=== PATIENT | female | born 1975 | race Caucasian/White ===

== ENCOUNTER → 2017-01-14 | Outpatient (CLI) | payer OTHER | LOC: FIMAGING 15:57 | DX: Z36 Encounter for antenatal screening of mother (principal); N83.202 Unspecified ovarian cyst, left side ==

== ENCOUNTER → 2018-03-11 | Outpatient (CLI) | payer OTHER | LOC: FIMAGING 11:24 | PROVIDERS: ATTEND Advanced Practice Midwife | DX: O09.522 Supervision of elderly multigravida, second trimester (principal); Z3A.18 18 weeks gestation of pregnancy ==

== ENCOUNTER → 2018-06-12 | Outpatient (CLI) | payer OTHER | LOC: FIMAGING 10:07 | PROVIDERS: ATTEND Advanced Practice Midwife | DX: O09.523 Supervision of elderly multigravida, third trimester (principal); Z3A.32 32 weeks gestation of pregnancy ==

== ENCOUNTER 2018-08-06 03:42 | Inpatient (IN) | payer BC, OTHER ==
[2018-08-06] MEDS ORDERED: LR 1,000 ML IV PRN (04:40)
[2018-08-06] MEDS ORDERED: MISOPROSTOL 200 MCG TAB PR PRN (04:40)
[2018-08-06] MEDS ORDERED: OLIVE OIL 118 ML BTL MISC PRN (04:40)
[2018-08-06] MEDS ORDERED: LIDOCAINE 1% 300 MG/30 ML SDV SC PRN (04:40)
[2018-08-06] MEDS ORDERED: OXYTOCIN/RINGERS LACTATE 1,000 ML IV PRN (04:40)
[2018-08-06] MEDS ORDERED: EPSOM SALT 454 GM TP PRN (04:40)
[2018-08-06] MEDS ORDERED: IBUPROFEN 600 MG TAB PO PRN (04:40)
[2018-08-06 06:01] LABS: PLATELET COUNT 235 10^3/uL (150-400)
--- NOTE | 2018-08-06 09:11 | PDGENHP ---
History and Physical History and Physical: CARE: [facility] HPI: Patient is a 42 yo G 3 P 1011 who presents to L&D as a transfer from the [facility] - She had SROM of large amt clear fluid at 0145 this am with contractions that were every 6 minutes. Good activity. Contractions have spaced out and are fairly mild and irregular at this time. She continues to leak clear fluid. The reason for her transfer is she plans an epidural when she is in more active labor. EDC: 08/06/2018 which is based on LMP: 10/30/17 Her is complicated by: -AMA Review of Systems: Constitutional: Denies any fever, chills, or fatigue HEENT: denies any visual changes, difficulty swallowing, hearing loss Cardiovascular: Denies any chest pain, palpitations, leg swelling Respiratory: denies any cough, wheezing, or shortness of breathe GI: Denies any nausea, vomiting, diarrhea, constipation : denies any dysuria, urgency, frequency, vaginal bleeding Musculoskeletal: denies any muscle or bone pain Skin: denies any rashes Neuro: denies any headache, seizures, lightheadedness, dizziness, or loss of consciousness Psychiatric: denies any depression, anxiety, or SI/HI thoughts HISTORY: Previous OB history: 2016 Past medical history: non contributory Past surgical history: none Social history: , non smoker, no alcohol/substance abuse Medications: PNV, magnesium Allergies (list reaction): NKDA LABS: Rh: O pos ABS: Neg Rubella: Immune HbsAg: NR HIV: NR VDRL: NR 1hr: 98 GC: Neg Chlamydia: Neg GBS: neg PHYSICAL EXAM: Constitutional: WN, A&Ox3 Skin: [place], warm and dry HEENT: normocephalic atraumatic, supple Heart: RRR, no murmur Chest: CTA-B Abdomen: Soft, nontender, gravid SVE: deferred due to SROM Extremities: trace edema, negative lucy's sign Neuro: grossly normal Psych: normal affect assessment: Reassuring FHTs, baseline 30s +accels, no decels, moderate variability Contractions: toco q 8-10 mild Assessment: 1) 42 yo G 3 P 1 with IUP@ 40 weeks ega 2) SROM at 0145 - no active labor at this point 3) GBS neg 4) Cat 1 FHR tracing Plan: 1) Admit to L&D 2) Expectant management for now. Offered the option for patient to go home until contractions more regular, will consider, but would like to stay at this time - declines augmentation for now. Is potentially open to pitocin at a later time if labor has not started. 3) Pain management as patient desires. 4) Anticipate
[2018-08-06] MEDS ORDERED: LIDOCAINE 1% 300 MG/30 ML SDV ONE (10:36)
[2018-08-06] MEDS ORDERED: OLIVE OIL 118 ML BTL ONE (10:36)
[2018-08-06] MEDS ORDERED: OXYTOCIN 10 UNIT/ML VIAL ONE (10:37)
[2018-08-06] MEDS ORDERED: MISOPROSTOL 200 MCG TAB ONE (10:37)
[2018-08-06] MEDS ORDERED: TERBUTALINE SULFATE 1 MG/ML VIAL ONE (10:37)
[2018-08-06] MEDS ORDERED: AMMONIA AROMATIC 1 EACH AMP IH ONE (10:37)
--- NOTE | 2018-08-06 16:26 | OBPROG ---
Labor Progress Note Assessment/Plan: Assessment: 42 y/o at 40 weeks ega Regular contractions q 2-4 minutes that are more painful now after nipple stimulation with breast pump EFM category 1 at this time, previously had a 15 minute episode of repetitive late decelerations when using breast pump, resolved after discontinuing breast pump, repositioning and giving IV fluid bolus. Cervix 4-5/80/0 station Active labor Considering epidural soon Plan: Continuous monitoring Epidural when she desires Anticipate 08/06/18 17:29 08/06/18 17:35 Subjective/Intrapartum Course: 08/06/18 17:34 Starting to need to breath through contractions. Considering epidural soon. Objective: 08/06/18 05:30 Patient ABO/Rh O POSITIVE 08/06/18 05:30 - SVE Dilation (cm): 5 Effacement (%): 80 Station: 0 Membranes: SROM Amniotic Fluid Color: Clear - Contraction Pattern Assessment Current Contraction Pattern: Regular Oxytocin Orders Assessment - Pre-Induction/Augmentation Assessment Gestational Age: 40 week(s) and 0 day(s) ICD10 Worksheet Patient Problems: Problems Problem Status Onset AMA (advanced maternal age) multigravida 35+ Acute Prolonged rupture of membranes Acute - ICD10 Problem Qualifiers (1) AMA (advanced maternal age) multigravida 35+ (2) Prolonged rupture of membranes
[2018-08-06] MEDS ORDERED: fentaNYL 2MCG/ML/BUP 0.1% RTU 100 ML BAG EP ONE ×2 (16:50→23:34)
[2018-08-06] MEDS ORDERED: BUPIVACAINE 0.25% 10 ML SDV ONE (16:50)
[2018-08-06] MEDS ORDERED: PHENYLEPHRINE HCL 100 MCG/ML SYR ONE (16:51)
[2018-08-06] MEDS ORDERED: METOCLOPRAMIDE 10 MG/2 ML VIAL IVP PRN (17:21)
[2018-08-06] MEDS ORDERED: ONDANSETRON 4 MG/2 ML VIAL IVP PRN (17:21)
[2018-08-06] MEDS ORDERED: NALOXONE HCL 0.4 MG/ML INJ IVP PRN (17:21)
[2018-08-06] MEDS ORDERED: PHENYLEPHRINE HCL 100 MCG/ML SYR IVP PRN (17:21)
--- NOTE | 2018-08-06 17:21 | POSTANESTH ---
Post Anesthetic Evaluation Cardiovascular Status: Normal, Stable Respiratory Status: Normal, Stable Level of Consciousness/Mental Status: Can Participate in Eval Pain Control: Adequate, Prn Tx Ordered Nausea/Vomiting Control: Adequate, Prn Tx Ordered Complications Possibly Related to Anesthesia: None Noted
--- NOTE | 2018-08-06 17:21 | PREANESOB ---
Obstetric Pre-Anesthesia Info - General Info Proposed Procedure: NELIA : 3 Para: 0 ANNABELLE: 08/06/18 Gestational Age: 40 week(s) and 0 day(s) - Info Status: Full Term FHR Pattern: Reassuring - Labor Status Cervical Dilation per last OB SVE: 5 Station per last OB SVE: 0 Rupture of Membranes Date: 08/06/18 Rupture of Membranes Time: 01:45 Amniotic Fluid Color: Clear Indications for Labor Analgesia: Pain Control Labor Epidural: Proposed Anesthesia Allergies/Adverse Reactions: Allergy/AdvReac Type Severity Reaction Status Date / Time No Known Allergies Allergy Unverified 08/06/18 04:39 Visit Medications: Generic Name Dose Route Start Last Admin Trade Name Freq PRN Reason Stop Dose Admin Lactated Ringer's 1,000 mls @ 0 mls/hr 08/06/18 04:40 Lr IV 08/07/18 04:39 PRN PRN SEE PROTOCOL CONDITIONS Protocol Per Protocol Oxytocin/Lactated Ringer's 1,000 mls @ 125 mls/hr 08/06/18 04:40 Pitocin 20 Units/Lr (Premix) IV PRN PRN Post bleeding Ibuprofen 600 mg 08/06/18 04:40 Motrin PO ONCE PRN post , pain Lidocaine HCl 300 mg 08/06/18 04:40 Lidocaine Hcl 1% SC 02/02/19 04:39 ONCE PRN episiotomy Magnesium Sulfate 454 gm 08/06/18 04:40 Epsom Salt TP 02/02/19 04:39 Q1H PRN perineal discomfort Misoprostol 800 - 1,000 mcg 08/06/18 04:40 Cytotec AL ONCE PRN Vaginal Atony/Bleeding [place]ordo Oil 118 ml 08/06/18 04:40 Sweet Oil MISC 02/02/19 04:39 ONCE PRN perineal massage Discontinued Medications Generic Name Dose Route Start Last Admin Trade Name Freq PRN Reason Stop Dose Admin Ammonia (Aromatic Spirit) Confirm 08/06/18 10:37 Ammonia Aromatic Administered 08/06/18 10:38 Dose 1 each IH .STK-MED ONE Bupivacaine HCl Confirm 08/06/18 16:50 Sensorcaine 0.25% Sdv Administered 08/06/18 16:51 Dose 10 ml .ROUTE .STK-MED ONE Fentanyl/Bupivacaine HCl Confirm 08/06/18 16:50 Fentanyl/Bupivacaine/Ns 2 Mcg/Ml 0.1% (Premix Administered 08/06/18 16:51 Dose 100 ml EP .STK-MED ONE Lidocaine HCl Confirm 08/06/18 10:36 Lidocaine Hcl 1% Administered 08/06/18 10:37 Dose 300 mg .ROUTE .STK-MED ONE Misoprostol Confirm 08/06/18 10:37 Cytotec Administered 08/06/18 10:38 Dose 1,000 mcg .ROUTE .STK-MED ONE Gordo Oil Confirm 08/06/18 10:36 Sweet Oil Administered 08/06/18 10:37 Dose 118 ml .ROUTE .STK-MED ONE Oxytocin Confirm 08/06/18 10:37 Pitocin Administered 08/06/18 10:38 Dose 40 unit .ROUTE .STK-MED ONE Phenylephrine HCl Confirm 08/06/18 16:51 Neosynephrine Administered 08/06/18 16:52 Dose 1,000 mcg .ROUTE .STK-MED ONE Terbutaline Sulfate Confirm 08/06/18 10:37 Brethine Administered 08/06/18 10:38 Dose 1 mg .ROUTE .STK-MED ONE - Anesthesia History Response to Local Anesthetics: Not Applicable Anesthesia & Operative History: No Prior Problems Family Anesthesia History: Not Applicable - Vital Signs Height/Weight (Nursing): Height 167.64 cm Weight 66.224 kg - Focused Exam Neck exam: FROM Mallampati Score: Class 1 Mouth exam: normal dental/mouth exam Pulmonary: no respiratory distress Labs: 08/06/18 05:30 Patient ABO/Rh O POSITIVE 08/06/18 05:30 - Plan Consent Signed and on Chart: Yes Patient/Guardian Understands and Agrees to Plan: Yes Urgent/Emergent Case: Laurie becerril completed preop but documented later for safe timely pt care
[2018-08-06] MEDS ORDERED: LR 500 ML IV SCH (17:30)
[2018-08-06] MEDS ORDERED: LR 500 ML IV PRN (21:26)
[2018-08-06] MEDS ORDERED: OXYTOCIN/RINGERS LACTATE 500 ML IV SCH (21:30)
--- NOTE | 2018-08-06 21:32 | OBPROG ---
Labor Progress Note Assessment/Plan: Assessment: 42 y/o at 40 weeks ega . Cervix 8-9/80/0 station Comfortable with epidural Category 1 EFM Contractions q 2-4 mod intensity Plan: Will augment with pitocin Anticipate 08/06/18 17:29 08/06/18 17:35 08/06/18 22:51 Subjective/Intrapartum Course: 08/06/18 17:34 Starting to need to breath through contractions. Considering epidural soon. 08/06/18 22:54 Comfortable with contractions. Objective: 08/06/18 05:30 Patient ABO/Rh O POSITIVE 08/06/18 05:30 - SVE Dilation (cm): 8 Effacement (%): 80 Station: 0 Membranes: SROM Amniotic Fluid Color: Clear - Contraction Pattern Assessment Current Contraction Pattern: Regular Oxytocin Orders Assessment - Pre-Induction/Augmentation Assessment Gestational Age: 40 week(s) and 0 day(s) ICD10 Worksheet Patient Problems: Problems Problem Status Onset AMA (advanced maternal age) multigravida 35+ Acute Prolonged rupture of membranes Acute - ICD10 Problem Qualifiers (1) AMA (advanced maternal age) multigravida 35+ (2) Prolonged rupture of membranes
--- NOTE | 2018-08-07 01:04 | OBDEL ---
Info Type: Vaginal Presentation at Delivery: Vertex L&D Analgesia/Anesthesia Type: Epidural GBS+: No Intrapartum Medications: Generic Name Dose Route Start Last Admin Trade Name Cecelia PRN Reason Stop Dose Admin Oxytocin/Lactated Ringer's 500 mls @ 0 mls/hr 08/06/18 21:30 08/06/18 22:11 Pitocin 30 Units/Lr (Premix) IV 02/02/19 21:29 500 mls CONT TR Administration Protocol Per Protocol - Hospital Course Intrapartum: 08/06/18 17:34 Starting to need to breath through contractions. Considering epidural soon. 08/06/18 22:54 Comfortable with contractions. Indications for Delivery: SROM Vaginal Delivery - Delivery Provider Delivery Physician/CNM: Shell Duenas - Labor and Delivery Onset of Contractions Date: 08/06/18 Onset of Contractions Time: 16:00 Rupture of Membranes Date: 08/06/18 Rupture of Membranes Time: 01:45 Rupture of Membranes Type: Spontaneous Amniotic Fluid Color: Clear Dilation Complete Date: 08/07/18 Dilation Complete Time: 00:25 Placenta Delivery Date: 08/07/18 Placenta Delivery Time: 00:43 Total Hours of Labor: 8 Vaginal Sponge Count Correct: Yes Vaginal Needle Count Correct: Yes Vaginal Sweep Performed: No EBL: 200 Delivery Events: None - Medications Labor Augmentation/Induction Methods Used: Pitocin Labor Augmentation/Induction Indication: Inadequate Contraction Frequency, Inadequate Contraction Strength [place] Data ANNABELLE: 08/06/18 Gestational Age: 40 week(s) and 1 day(s) [place] Delivery Date: 08/07/18 Delivery Time: 00:36 Sex of : Female Score (1 Min): 8 Score (5 Min): 9 ICD10 Worksheet Patient Problems: Problems Problem Status Onset AMA (advanced maternal age) multigravida 35+ Acute (normal spontaneous vaginal delivery) Acute Prolonged rupture of membranes Acute - ICD10 Problem Qualifiers (1) AMA (advanced maternal age) multigravida 35+ (2) Prolonged rupture of membranes (3) (normal spontaneous vaginal delivery)
[2018-08-07] MEDS ORDERED: HYDROCODONE/APAP 5/325 TAB PO PRN (01:06)
[2018-08-07] MEDS ORDERED: HYDROCORTISONE 0.5% CREAM TP PRN (01:06)
[2018-08-07] MEDS ORDERED: SIMETHICONE 80 MG TAB CHEW PO PRN (01:06)
[2018-08-07] MEDS ORDERED: ACETAMINOPHEN 325 MG TAB PO PRN (01:06)
[2018-08-07] MEDS: IBUPROFEN 600 MG TAB PO PRN ×2 (04:52→13:02)
[2018-08-07 22:36] VITALS: BP 99/70
[2018-08-08] MEDS: IBUPROFEN 600 MG TAB PO PRN ×3 (02:33→10:42)
--- NOTE | 2018-08-08 08:34 | POSTANESTH ---
Post Anesthetic Evaluation Cardiovascular Status: Normal, Stable Respiratory Status: Normal, Stable Level of Consciousness/Mental Status: Can Participate in Eval Pain Control: Adequate, Prn Tx Ordered Nausea/Vomiting Control: Adequate, Prn Tx Ordered Complications Possibly Related to Anesthesia: None Noted (Pt. is s/p labor NELIA for vaginal delivery. Pt. is ambulating without difficulty, denies residual weakness/numbness/visual anomalies/CORRAL. She reports excellent labor pain relief from NELIA. Insertion site with pinpoint erythema, no edema, minimal tenderness.)
[2018-08-08] MEDS: DOCUSATE SODIUM 100 MG CAP PO PRN ×2 (08:46→09:09)
--- NOTE | 2018-08-08 12:58 | OBGCSDC ---
General Delivery Information - General Info : 3 Para: 1 Abortions: 1 Type: Vaginal L&D Analgesia/Anesthesia Type: Epidural Admission Date: 08/06/18 Labs: Patient ABO/Rh O POSITIVE 08/06/18 05:30 Hct 36.5 % (38.0-47.0) L 08/06/18 05:30 - Hospital Course Intrapartum: 08/06/18 17:34 Starting to need to breath through contractions. Considering epidural soon. 08/06/18 22:54 Comfortable with contractions. : 08/08/18 12:57 Normal post- progress. Pain well controlled with ibuprofen. Voiding without difficulty. Tolerating ambulation. Vaginal - Delivery Provider Delivery Physician/CNM: Shell Duenas - Diagnosis Rupture of Membranes Type: Spontaneous Amniotic Fluid Color: Clear Delivery Events: None - Delivery EBL: 200 Data ANNABELLE: 08/06/18 Gestational Age: 40 week(s) and 2 day(s) [place] Delivery Date: 08/07/18 Delivery Time: 00:36 Sex of Infant: Female Score (1 Min): 8 Score (5 Min): 9 Discharge Information - Discharge Information Instruction/Follow Up: Two Weeks, Four Weeks, Six Weeks
[2018-08-13] MEDS ORDERED: fentaNYL 2MCG/ML/BUP 0.1% RTU 100 ML EP SCH (17:00)
== END 2018-08-08 13:30 | disposition home or self-care (01) | DRG 807 ==
LOC: FLD 03:42 → OBSVTOIN 04:41 → FOB 08-07 04:29
PROVIDERS: ADMIT Advanced Practice Midwife; ATTEND Advanced Practice Midwife
PROC: 10E0XZZ Delivery of Products of Conception, External Approach (ICD-10-PCS; principal; 2018-08-07)
DX: O80 Encounter for full-term uncomplicated delivery (principal); Z37.0 Single live birth; Z3A.40 40 weeks gestation of pregnancy
CPT/HCPCS: J2370; J2590; J3105